=== PATIENT | male | born 1960 | race Caucasian/White ===

== ENCOUNTER 2018-01-14 08:19 | Emergency (ER) | payer SELFPAY ==
[~2018-01-14] VITALS: Ht 177.8 cm; Wt 75.0 kg
[2018-01-14 08:24] VITALS: BP 179/99; PULSE 102; RESP 14; TEMP 98.4; O2SAT 99
[2018-01-14] MEDS ORDERED: BACT800T5 PO (08:53)
[2018-01-14] MEDS ORDERED: IBUP1TAB7 PO (08:53)
--- NOTE | 2018-01-14 08:54 | PD ---
HPI Chief Complaint: Lump, Cyst, Hernia Time Seen by Provider: 08:41 Travel History International Travel<30 days: No Contact w/Intl Traveler<30days: No Traveled to known affect area: No History of Present Illness HPI Patient is Croatian-speaking and a professional communications technologist was used with patient' s permission. 57-year-old male presents to the emergency department with complaint of a lump to his right upper back, just at the base of his neck, that has gotten bigger over the past few days. He says it was there 10 years ago and then again 2 years ago and over the past few days has gotten bigger. He denies fever, vomiting. Has not taken any medications or tried measurements to alleviate his symptoms. Rates pain 3/10. Aggravated with palpation. No known relieving factors. No primary care provider. No known allergies. Denies significant past medical history. Has no other medical complaints. No other modifying factors or associated signs and symptoms. PFSH Social History Tobacco Use: No Allergies-Medications (Allergen,Severity, Reaction): Coded Allergies: No Known Allergies (Verified Allergy, Unknown, 01/14/18) Reported Meds & Prescriptions Reported Meds & Active Scripts Active [place] (Hydrocodone-Acetaminophen) 5 Mg-325 Mg Tab 1 Tab PO Q4H PRN Ibuprofen 800 Mg Tab 800 Mg PO Q6HR PRN Bactrim DS (Sulfamethoxazole-Trimethoprim) 800-160 Mg Tab 1 Tab PO BID 10 Days Review of Systems Except as stated in HPI: all other systems reviewed are Neg Physical Exam Narrative GENERAL: Well-nourished, well-developed male patient, in no acute distress; afebrile, nontoxic-appearing SKIN: There is an indurated area to the right upper back/base of the neck which measures about 4 cm in diameter. It is fluctuant and there is pointing, but no drainage. There is a zone of inflammation around it but no lymphangitis. HEAD: Atraumatic. Normocephalic. EYES: Pupils equal and round. No scleral icterus. No injection or drainage. ENT: Mucosa pink and moist. Airway patent. NECK: Trachea midline. CARDIOVASCULAR: Regular rate. RESPIRATORY: No accessory muscle use. GASTROINTESTINAL: Flat. MUSCULOSKELETAL: No obvious deformities. No clubbing. No cyanosis. No edema. NEUROLOGICAL: Awake and alert. Oriented 3. No obvious cranial nerve deficits. Motor grossly within normal limits. Normal speech. PSYCHIATRIC: Appropriate mood and affect; insight and judgment normal. Data Data Last Documented VS Vital Signs Date Time Temp Pulse Resp B/P (MAP) Pulse Ox O2 Delivery O2 Flow Rate FiO2 01/14/18 09:45 01/14/18 08:24 98.4 102 14 99 Orders Orders Lidocaine 1% Inj (Xylocaine 1% Inj) (01/14/18 09:00) Wound Culture And Gram Stain (01/14/18 08:51) Acetamin-Hydrocod 325-5 Mg ([place] 5-325 (01/14/18 09:30) Ed Discharge Order (01/14/18 09:26) [facility] Medical Decision Making Medical Screen Exam Complete: Yes Emergency Medical Condition: Yes Medical Record Reviewed: Yes Differential Diagnosis Abscess, folliculitis, cellulitis Narrative Course 57-year-old male with an abscess to his right upper back/base of neck area. See my procedure note for incision and drainage. Wound culture pending. [place] administered in the ER. Instructed patient to return to the emergency department at 48 hours for abscess recheck and packing removal. [place], ibuprofen, Bactrim prescribed for home. Instructed patient to follow up with primary care provider. Patient verbalizes understanding and agreement with treatment plan. Patient is medically cleared and stable for discharge. Discussed reasons to return to the emergency department. Patient agrees with treatment plan. The patients vital signs are stable and the patient is stable for outpatient follow-up and treatment. Patient discharged home, stable and in no acute distress. Procedures Procedure Narrative INCISION AND DRAINAGE OF ABSCESS: The area was prepped and was sterilely draped. A subcutaneous wheal of 1 % Xylocaine with a total number 2 mL was used to anesthetize the area properly. A number 11 scalpel was used to make a 1 -cm incision across the area of the abscess. The abscess was drained, complex loculations were broken down, and irrigated with normal saline. Cultures were obtained. Quarter inch iodoform packing was placed in the wound. Sterile dressing applied. Patient advised to have packing removed in two days. Diagnosis Primary Impression: Abscess of back Referrals: [facility] Primary Care Physician Patient Instructions: Abscess (ED), Abscess Follow-up (ED), Abscess Incision and Drainage (DC), General Instructions Additional Instructions: Complete full course of antibiotics Warm compresses to the affected area Keep area clean and dry Ibuprofen or Tylenol as directed and as needed for pain and inflammation Return to the emergency department in 48 hours for packing removal and abscess recheck Follow-up with primary care provider Return to emergency department immediately with worsening of symptoms Med/Other Pt SpecificInfo: Prescription(s) given Scripts Hydrocodone-Acetaminophen ([place]) 5 Mg-325 Mg Tab 1 TAB PO Q4H Y for PAIN, #8 TAB 0 Refills Prov: Marcie Robin 01/14/18 Ibuprofen (Ibuprofen) 800 Mg Tab 800 MG PO Q6HR Y for PAIN, #30 TAB 0 Refills Prov: Marcie Robin 01/14/18 Sulfamethoxazole-Trimethoprim (Bactrim DS) 800-160 Mg Tab 1 TAB PO BID for Infection for 10 Days, #20 TAB 0 Refills Prov: Marcie Robin 01/14/18 Disposition: 01 DISCHARGE HOME Condition: Stable Marcie Robin Jan 14, 2018 08:54
[2018-01-14] MEDS ORDERED: LIDOCAINE HCL 1% 20 ML VIAL INFIL ONE (09:00)
[2018-01-14] MEDS ORDERED: NORC5TAB PO (09:25)
[2018-01-14] MEDS ORDERED: ACETAMINOPHEN/HYDROcodone 325 MG/5 MG TAB PO ONE (09:30)
== END 2018-01-14 09:47 | disposition home or self-care (01) ==
LOC: NEPD 08:19
DX: L02.212 Cutaneous abscess of back [any part, except buttock and flank] (principal)
CPT/HCPCS: 10061; 86403; 87070; 87205